=== PATIENT | female | born 1965 | race Caucasian/White ===

== ENCOUNTER 2018-05-24 18:23 | Emergency (ER) | payer MEDICAID ==
[~2018-05-24] VITALS: Ht 162.6 cm; Wt 76.3 kg
[~2018-05-24 18:23] MED LIST: ALBU8.5H5 INH; AMOX1TAB12 PO; ATEN25TA PO; BECL8.7A7 INH; CHLO25TA PO; CICL6.1H4 INH; FLUN25SP3 NS; HYDR-3237 PO; LOSA25TA6 PO; PANT40TA3 PO; SUMA25TA4 PO; VALA10004 PO
[2018-05-24 18:33] VITALS: BP 109/75
[2018-05-24] MEDS ORDERED: LIDOCAINE-MPF 1%, 5ML ONE (18:47)
[2018-05-24] MEDS ORDERED: LIDOCAINE-MPF 1%, 5ML INFIL ONE (19:00)
[2018-05-24] MEDS ORDERED: BACITRACIN ZINC OINT 500U/GM, 0.9 GM ONE (20:13)
== END 2018-05-24 20:22 | disposition home or self-care (01) ==
LOC: ED 20:16
DX: S01.81XA Laceration without foreign body of other part of head, initial encounter (principal); W01.198A Fall on same level from slipping, tripping and stumbling with subsequent striking against other object, initial encounter; Y93.E1 Activity, personal bathing and showering; Y92.091 Bathroom in other non-institutional residence as the place of occurrence of the external cause; Y99.8 Other external cause status
CPT/HCPCS: 12011; 70450; 99284

== ENCOUNTER 2018-11-13 10:28 | Inpatient (IN) | payer MEDICAID ==
[~2018-11-13] VITALS: Ht 162.6 cm; Wt 74.7 kg
[~2018-11-13 10:28] MED LIST changes: +LOSA25TA25 PO; -LOSA25TA6 PO
[2018-11-13] MEDS ORDERED: ALBUTEROL/IPRATROPIUM 2.5MG/0.5MG, 3 ML ONE ×2 (11:22→14:37)
[2018-11-13] MEDS ORDERED: SODIUM CHLORIDE FLUSH 10ML SYR IVF ONE (11:30)
[2018-11-13] MEDS ORDERED: ALBUTEROL/IPRATROPIUM 2.5MG/0.5MG, 3 ML NPPB ONE (11:30)
[2018-11-13 11:37] LABS: BASOPHILS % (AUTO) 0 % (0-1); EOSINOPHILS # (AUTO) 0.05 x10^3/uL (0-0.4); EOSINOPHILS % (AUTO) 1 % (1-7); LYMPHOCYTES # (AUTO) 0.37 x10^3/uL (1-3.4); LYMPHOCYTES % (AUTO) 6 % (22-44); MD NO; MEAN CORPUSCULAR HEMOGLOBIN 24.6 pg (27.0-34.8); MEAN CORPUSCULAR HGB CONC 31.8 g/dL (32.4-35.8); MEAN CORPUSCULAR VOLUME 77.5 fL (80-100); MEAN PLATELET VOLUME 7.6 fL (7.4-10.4); MONOCYTES # (AUTO) 0.25 x10^3/uL (0.2-0.8); MONOCYTES % (AUTO) 4 % (2-9); NEUTROPHILS # (AUTO) 5.31 x10^3/uL (1.8-6.8); NEUTROPHILS % (AUTO) 89 % (42-75); PLATELET COUNT 301 x10^3/uL (130-400); RED BLOOD COUNT 3.31 x10^6/uL (3.82-5.3); RED CELL DISTRIBUTION WIDTH 17.8 % (9.6-15.2)
[2018-11-13 11:45] LABS: INTERNATIONAL NORMALIZED RATIO 1.04 (0.93-1.1); PROTHROMBIN TIME 10.9 Seconds (9.6-11.5)
[2018-11-13 11:46] LABS: ALANINE AMINOTRANSFERASE 82 U/L (12-78); ALBUMIN 3.6 g/dL (3.4-5.0); ANION GAP 9 mmol/L (5-15); CHLORIDE 102 mmol/L (98-107); CREATININE 0.83 mg/dL (0.55-1.02)
[2018-11-13 11:49] LABS: ALKALINE PHOSPHATASE 118 U/L (45-117); BILIRUBIN,TOTAL 0.7 mg/dL (0.2-1.0); TOTAL PROTEIN 7.2 g/dL (6.4-8.2); TROPONIN I < 0.015 ng/mL (0.000-0.045)
--- NOTE | 2018-11-13 11:50 | NUR ---
PATIETN LUNGS HAVE INSPIR/EXP WHEEZES AFTER BREATHIGN TREATMENT, LEFT UPPER LOBE DIMINISHED. PATIENT CONTNUES TO BREATH RR 26 BUT IS NOW ABLE TO SPEAK IN 4 WORK SENTENCES INSTEAD OF 2 WORD SENENCES. COMFORT MEASURES GIVEN
[2018-11-13] MEDS ORDERED: FLUT1BLS INH (12:04)
[2018-11-13] MEDS ORDERED: ONDA4TAB7 PO (12:05)
[2018-11-13] MEDS ORDERED: PRED10TA PO (12:05)
--- NOTE | 2018-11-13 12:51 | NUR ---
vss, lab and imaging results pending. in no acute distress, sob with excessive talking but speaks in full sentences and in good spirits. son at bedside.
--- NOTE | 2018-11-13 12:58 | NUR ---
PATIENT TO CT SCAN
[2018-11-13] MEDS ORDERED: methylPREDNISolone SOD SUCC 125 MG/2 ML IVPush SCH (14:00)
[2018-11-13] MEDS ORDERED: AZITHROMYCIN 500 MG in SODIUM CHLORIDE 0.9% 250 ML IV ONE (14:00)
[2018-11-13] MEDS ORDERED: CEFTRIAXONE PMX 1GM/50ML 50 ML IVPB ONE (14:00)
[2018-11-13] MEDS ORDERED: CEFTRIAXONE PMX 1GM/50ML 50 ML ONE (14:05)
[2018-11-13] MEDS ORDERED: methylPREDNISolone SOD SUCC 125 MG/2 ML ONE (14:08)
--- NOTE | 2018-11-13 14:21 | NUR ---
Hospital bed ordered for patient
--- NOTE | 2018-11-13 14:59 | NUR ---
JORDIN TRANSFERED TO HOSPITAL BED FOR COMFORT. UPDATED ON PLAN OF CARE
--- NOTE | 2018-11-13 15:17 | NUR ---
PATIENT REPORT TO GINGER SANCHEZ
[2018-11-13 15:56] VITALS: BP 144/86
[2018-11-13] MEDS ORDERED: ONDANSETRON 4 MG TABLET PO PRN (16:00)
[2018-11-13] MEDS ORDERED: ACETAMINOPHEN 325 MG TABLET PO PRN (16:00)
[2018-11-13] MEDS ORDERED: hydrALAzine 20 MG/ML, 1ML IVPush PRN (16:00)
[2018-11-13] MEDS ORDERED: ALBUTEROL SULFATE 2.5MG/0.5ML NPPB PRN (16:00)
[2018-11-13] MEDS: IBUPROFEN 600 MG TABLET PO PRN (16:26)
[2018-11-13] MEDS: HEPARIN 5,000 UNITS/ML, 1ML SQ SCH (16:28)
[2018-11-13] MEDS: LEVOFLOXACIN/PMX 750MG/150ML 150 ML IV SCH (17:14)
[2018-11-13] MEDS: ALBUTEROL/IPRATROPIUM 2.5MG/0.5MG, 3 ML NPPB SCH ×2 (19:00→23:00)
[2018-11-13 21:00] VITALS: BP 137/83
[2018-11-13] MEDS ORDERED: DIPHENHYDRAMINE 25 MG CAPSULE PO PRN (21:30)
[2018-11-14] MEDS: HEPARIN 5,000 UNITS/ML, 1ML SQ SCH ×4 (00:01→23:33)
[2018-11-14] MEDS ORDERED: ATENOLOL 50 MG TABLET PO SCH ×2 (00:30→09:00)
[2018-11-14] MEDS: ATENOLOL 50 MG TABLET HOMEMEDPO SCH ×2 (00:30→22:04)
[2018-11-14 01:20] VITALS: BP 149/78
[2018-11-14] MEDS: ALBUTEROL/IPRATROPIUM 2.5MG/0.5MG, 3 ML NPPB SCH ×6 (02:52→23:15)
[2018-11-14] MEDS: methylPREDNISolone SOD SUCC 125 MG/2 ML IVPush SCH (08:16)
[2018-11-14 08:17] VITALS: BP 157/93
[2018-11-14] MEDS: PANTOPROZOLE 40MG TABLET PO SCH (08:17)
[2018-11-14] MEDS: IBUPROFEN 600 MG TABLET PO PRN ×2 (08:40→16:25)
[2018-11-14] MEDS ORDERED: ATENOLOL 25 MG TABLET PO SCH (09:00)
[2018-11-14] MEDS ORDERED: CYCLOBENZAPRINE 10 MG TABLET PO PRN (09:00)
[2018-11-14] MEDS: FLUTICASONE/VILANTEROL 200-25MCG/INH INH SCH (09:18)
[2018-11-14] MEDS: GUAIFENESIN/DM 200-20MG, 10ML UDC PO PRN ×2 (09:24→16:02)
[2018-11-14 13:00] VITALS: BP 136/84
[2018-11-14] MEDS: LEVOFLOXACIN/PMX 750MG/150ML 150 ML IV SCH (16:02)
[2018-11-14 20:08] VITALS: BP 131/86
[2018-11-14 22:00] VITALS: BP 137/82
[2018-11-14] MEDS: ZOLPIDEM 5MG TABLET PO PRN (22:01)
[2018-11-15 00:18] VITALS: BP 136/86
[2018-11-15] MEDS: ALBUTEROL/IPRATROPIUM 2.5MG/0.5MG, 3 ML NPPB SCH ×5 (03:00→19:24)
[2018-11-15 07:16] VITALS: BP 150/91
[2018-11-15] MEDS: PANTOPROZOLE 40MG TABLET PO SCH (09:15)
[2018-11-15] MEDS: FLUTICASONE/VILANTEROL 200-25MCG/INH INH SCH (09:16)
[2018-11-15] MEDS: methylPREDNISolone SOD SUCC 125 MG/2 ML IVPush SCH (09:17)
[2018-11-15] MEDS: HEPARIN 5,000 UNITS/ML, 1ML SQ SCH ×3 (09:19→22:33)
[2018-11-15] MEDS: GUAIFENESIN/DM 200-20MG, 10ML UDC PO PRN (13:07)
[2018-11-15 14:00] VITALS: BP 131/83
[2018-11-15] MEDS: IBUPROFEN 600 MG TABLET PO PRN (15:47)
[2018-11-15] MEDS: LEVOFLOXACIN/PMX 750MG/150ML 150 ML IV SCH (15:47)
[2018-11-15] MEDS: ATENOLOL 50 MG TABLET HOMEMEDPO SCH (19:47)
[2018-11-15] MEDS ORDERED: CYCLOBENZAPRINE 10 MG TABLET PO ONE (20:30)
[2018-11-15 20:46] VITALS: BP 139/78
[2018-11-15] MEDS: ZOLPIDEM 5MG TABLET PO PRN (22:34)
[2018-11-16 01:12] VITALS: BP 148/95
[2018-11-16] MEDS: ALBUTEROL/IPRATROPIUM 2.5MG/0.5MG, 3 ML NPPB SCH ×2 (07:25→10:06)
[2018-11-16] MEDS: HEPARIN 5,000 UNITS/ML, 1ML SQ SCH (08:26)
[2018-11-16] MEDS: PANTOPROZOLE 40MG TABLET PO SCH (08:26)
[2018-11-16] MEDS: methylPREDNISolone SOD SUCC 125 MG/2 ML IVPush SCH (08:26)
[2018-11-16] MEDS: FLUTICASONE/VILANTEROL 200-25MCG/INH INH SCH (08:27)
[2018-11-16 08:30] VITALS: BP 149/90
[2018-11-16] MEDS ORDERED: LEVO750T6 PO (12:05)
[2018-11-16] MEDS ORDERED: PRED10TA PO (12:05)
[2018-11-16 12:12] VITALS: BP 162/93
[2018-11-16] MEDS: GUAIFENESIN/DM 200-20MG, 10ML UDC PO PRN (13:45)
== END 2018-11-16 14:45 | disposition home or self-care (01) | DRG 193 ==
LOC: ED 12:07 → EDIP 13:48 → 4WST 15:37 → DCLOUNGE 11-16 14:35
PROVIDERS: ADMIT Hospitalist; ATTEND Hospitalist
DX: J18.9 Pneumonia, unspecified organism (principal); J96.01 Acute respiratory failure with hypoxia; F19.20 Other psychoactive substance dependence, uncomplicated; J45.902 Unspecified asthma with status asthmaticus; D64.9 Anemia, unspecified; F41.9 Anxiety disorder, unspecified; G47.00 Insomnia, unspecified; I10 Essential (primary) hypertension; K57.90 Diverticulosis of intestine, part unspecified, without perforation or abscess without bleeding; R74.0 Nonspecific elevation of levels of transaminase and lactic acid dehydrogenase [LDH]; K21.9 Gastro-esophageal reflux disease without esophagitis; K58.0 Irritable bowel syndrome with diarrhea; Y95 Nosocomial condition; Z86.011 Personal history of benign neoplasm of the brain
CPT/HCPCS: 36415; 99285; J7611; J7620; 71045; 71250; 80053; 83605; 83880; 84484; 85025; 85610; 85730; 87040; 93005; 93306; 94640; 96374; 96375; G0378; J0456; J0696; J1644; J1956; Q0162; J2930; J7050; Q0163

== ENCOUNTER → 2020-10-22 | Outpatient (CLI) | payer MEDICAID ==
[~2020-10-22] MED LIST changes: +FLUT1BLS INH; +LEVO750T6 PO; +ONDA4TAB7 PO; +PRED10TA PO
== END | disposition home or self-care (01) ==
LOC: RAD 09:42
PROVIDERS: ATTEND Student in an Organized Health Care Education/Training Program
DX: E04.1 Nontoxic single thyroid nodule (principal); R94.6 Abnormal results of thyroid function studies
CPT/HCPCS: 78013; A9516